=== PATIENT | male | born 1970 ===

== ENCOUNTER 2020-12-10 10:43 | Inpatient (IN) | payer SELFPAY ==
--- NOTE | 2020-12-10 12:15 | Event Note ---
ED Screening Note Date of service: 12/10/20 Time: 12:15 ED Screening Note: Chest pain or shortness of breath x2 days History of UT, has a stent in place Also states a couple of episodes of shortness of breath This initial assessment/diagnostic orders/clinical plan/treatment(s) is/are subject to change based on patients health status, clinical progression and re- assessment by fellow clinical providers in the ED. Further treatment and workup at subsequent clinical providers discretion. Patient/guardian urged not to elope from the ED as their condition may be serious if not clinically assessed and managed. Initial orders include: Labs EKG Chest x-ray lunchroom monitor
[2020-12-10] MEDS ORDERED: ASPIRIN 325 MG TAB PO ONE (12:34)
[2020-12-10 12:53] LABS: Basophils % (Auto) 0.2 % (0.0-1.8); Eosinophils % (Auto) 0.1 % (0.0-4.3); Hematocrit 44.6 % (35.5-45.6); Hemoglobin 15.4 gm/dl (11.8-15.2); Lymphocytes # (Auto) 0.7 K/mm3 (1.2-5.4); Mean Corpuscular HGB Conc 34 % (32-34); Mean Corpuscular Volume 94 fl (84-94); Monocytes # (Auto) 0.3 K/mm3 (0.0-0.8); Monocytes % (Auto) 4.9 % (0.0-7.3); Platelet Count 198 K/mm3 (140-440); Red Blood Count 4.75 M/mm3 (3.65-5.03); Red Cell Distribution Width 12.4 % (13.2-15.2)
--- NOTE | 2020-12-10 13:05 | XRay Report ---
CHEST 2 VIEWS INDICATION / CLINICAL INFORMATION: chest pain. COMPARISON: None available. FINDINGS: SUPPORT DEVICES: None. HEART / MEDIASTINUM: No significant abnormality. LUNGS / PLEURA: No significant pulmonary or pleural abnormality. No pneumothorax. ADDITIONAL FINDINGS: No significant additional findings. IMPRESSION: 1. No acute findings. Signer Name: Marley Souza MD Signed: 12/10/2020 1:01 PM Workstation Name: [id number]
[2020-12-10 13:12] LABS: Alanine Aminotransferase 28 units/L (7-56); Albumin 4.4 g/dL (3.9-5); BUN/Creatinine Ratio 18; Blood Urea Nitrogen 14 mg/dL (9-20); Calcium 9.3 mg/dL (8.4-10.2); Hemolysis Index 9
[2020-12-10 13:27] LABS: INR 0.84 (0.87-1.13)
[2020-12-10 13:28] LABS: Partial Thromboplastin Time 28.2 Sec. (24.2-36.6)
--- NOTE | 2020-12-10 13:58 | Emergency Department Report ---
ED Chest Pain HPI - General Chief Complaint: Chest Pain Stated Complaint: PAIN Time Seen by Provider: 12/10/20 11:47 Source: patient Mode of arrival: Ambulatory Limitations: No Limitations - History of Present Illness Initial Comments: Patient is a 50-year-old male with a past medical history of coronary artery disease hypertension who is presenting with chest discomfort. 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 Denies nausea. States he is is diaphoretic but he is also out working so he does not know if this is associated with chest discomfort. Patient had a stent placed in 2019. Denies cough cold congestion fevers or chills. - Related Data Allergies Allergy/AdvReac Type Severity Reaction Status Date / Time No Known Allergies Allergy Verified 12/10/20 11:07 Heart Score - HEART Score History: Highly suspicious EKG: Non-specific Age: 45-65 Risk factors: > 3 risk factors or hx of atherosclerotic disease Troponin: < normal limit HEART Score: 6 - EKG Read Time Time EKG Completed: 12:16 EKG Read Time: 12:19 ED Review of Systems ROS: Stated complaint: PAIN Other details as noted in HPI Comment: All other systems reviewed and negative ED Past Medical Hx - Past Medical History Previous Medical History?: Yes - Surgical History Past Surgical History?: Yes ED Physical Exam - General Limitations: No Limitations General appearance: alert, in no apparent distress - Head Head exam: Present: atraumatic, normocephalic - Eye Eye exam: Present: normal appearance, PERRL, EOMI - ENT ENT exam: Present: mucous membranes moist - Neck Neck exam: Present: normal inspection - Respiratory Respiratory exam: Present: normal lung sounds bilaterally. Absent: respiratory distress, wheezes, rales, rhonchi - Cardiovascular Cardiovascular Exam: Present: regular rate, normal rhythm, normal heart sounds. Absent: systolic murmur, diastolic murmur, rubs, gallop - GI/Abdominal GI/Abdominal exam: Present: soft, normal bowel sounds. Absent: distended, tenderness, guarding, rebound, rigid - Rectal Rectal exam: Present: deferred - Extremities Exam Extremities exam: Present: normal inspection - Back Exam Back exam: Present: normal inspection - Neurological Exam Neurological exam: Present: alert, oriented X3 - Psychiatric Psychiatric exam: Present: normal affect, normal mood - Skin Skin exam: Present: warm, dry, intact, normal color. Absent: rash ED Course Vital Signs 12/10/20 11:07 Temperature 98.4 F Pulse Rate 68 Respiratory 16 Rate Blood Pressure 104/70 [Left] O2 Sat by Pulse 96 Oximetry EMIR score - Emir Score Age > 65: (0) No Aspirin use within the Past 7 Days: (1) Yes 3 or more CAD Risk Factors: (1) Yes 2 or more Angina events in past 24 hrs: (1) Yes Known CAD with more than 50% Stenosis: (0) No Elevated Cardiac Markers: (0) No ST Deviation Greater than 0.5mm: (0) No EMIR Score: 3 ED Medical Decision Making - Lab Data Result diagrams: 12/10/20 12:21 12/10/20 12:21 Lab Results 12/10/20 12/10/20 12/10/20 Range/Units 12:21 12:21 12:39 WBC 6.2 (4.5-11.0) K/mm3 RBC 4.75 (3.65-5.03) M/mm3 Hgb 15.4 H (11.8-15.2) gm/dl Hct 44.6 (35.5-45.6) % MCV 94 (84-94) fl MCH 32 (28-32) pg MCHC 34 (32-34) % RDW 12.4 L (13.2-15.2) % Plt Count 198 (140-440) K/mm3 Lymph % (Auto) 11.0 L (13.4-35.0) % [place] % (Auto) 4.9 (0.0-7.3) % Eos % (Auto) 0.1 (0.0-4.3) % Baso % (Auto) 0.2 (0.0-1.8) % Lymph # (Auto) 0.7 L (1.2-5.4) K/mm3 [place] # (Auto) 0.3 (0.0-0.8) K/mm3 Eos # (Auto) 0.0 (0.0-0.4) K/mm3 Baso # (Auto) 0.0 (0.0-0.1) K/mm3 Seg Neutrophils % 83.8 H (40.0-70.0) % Seg Neutrophils # 5.2 (1.8-7.7) K/mm3 PT 12.5 (12.2-14.9) Sec. INR 0.84 L (0.87-1.13) APTT 28.2 (24.2-36.6) Sec. Sodium 140 (137-145) mmol/L Potassium 4.2 (3.6-5.0) mmol/L Chloride 103.7 (98-107) mmol/L Carbon Dioxide 23 (22-30) mmol/L Anion Gap 18 mmol/L BUN 14 (9-20) mg/dL Creatinine 0.8 (0.8-1.3) mg/dL Estimated GFR > 60 ml/min BUN/Creatinine Ratio 18 % Glucose 116 H (75-100) mg/dL Calcium 9.3 (8.4-10.2) mg/dL Total Bilirubin 0.70 (0.1-1.2) mg/dL AST 25 (5-40) units/L ALT 28 (7-56) units/L Alkaline Phosphatase 82 (35-129) units/L Troponin T < 0.010 (0.00-0.029) ng/mL Total Protein 7.7 (6.3-8.2) g/dL Albumin 4.4 (3.9-5) g/dL Albumin/Globulin Ratio 1.3 % - EKG Data -: EKG Interpreted by Nd - EKG Data 12/10/20 13:55 EKG shows ectopic atrial rhythm with a rate of 61. [place] is normal intervals otherwise normal. Q waves in septal leads. No ST segment elevation or depressions. Time interpretation 1219 - Radiology Data [facility] [address] [place] [address] XRay Report Signed Patient: LETY SCHULER MR#: [id number] : 1970 Acct:[id number] Age/Sex: 50 / M ADM Date: 12/10/20 Loc: ED Attending Dr: Ordering Physician: ABDIFATAH SAM Date of Service: 12/10/20 Procedure(s): XR chest routine 2V Accession Number(s): [id number] cc: ABDIFATAH SAM Fluoro Time In Minutes: CHEST 2 VIEWS INDICATION / CLINICAL INFORMATION: chest pain. COMPARISON: None available. FINDINGS: SUPPORT DEVICES: None. HEART / MEDIASTINUM: No significant abnormality. LUNGS / PLEURA: No significant pulmonary or pleural abnormality. No pneumothorax. ADDITIONAL FINDINGS: No significant additional findings. IMPRESSION: 1. No acute findings. Signer Name: Marley Souza MD Signed: 12/10/2020 1:01 PM Workstation Name: [id number] - Medical Decision Making Patient a 50-year-old male who is presenting with 3 days of chest discomfort. Heart score of 6. Patient will be admitted to the hospital service with cardiology consult. Critical Care Time: Yes (30) Critical care attestation.: If time is entered above; I have spent that time in minutes in the direct care of this critically ill patient, excluding procedure time. ED Disposition Clinical Impression: Unstable angina Disposition: ADMITTED INPATIENT Is pt being admited?: Yes Does the pt Need Aspirin: No Condition: Serious Instructions: Angina, Ewto-sl-Midp Time of Disposition: 13:58
--- NOTE | 2020-12-10 16:44 | History and Physical Report ---
History of Present Illness Chief complaint: My chest was hurting History of present illness: 50 YO Male with HTN, CAD S/P Stent placement, Obesity, Medication Noncompliance presents ED for evaluation. Patient reports "my chest is hurting". Patient states that he has experienced chest pain episodes over the past 3 days with intermittent symptoms over the same timeframe. Patient states that pain is 6/10, intermittent, worsened with exertion, relieved with rest, localized to the left side of the chest, nonradiating, associated with shortness of breath, associated with diaphoresis. Patient transported to [facility] via private vehicle for further care and evaluation of the aforementioned symptoms. The patient was se en and evaluated in the emergency department. All lab imaging studies reviewed. Patient found to have clinical symptoms consistent with angina. Patient initiated on chest pain protocol and placed in observation status and admitted to telemetry. Cardiology team consulted in ED as per ED staff. Patient denies fever, chills, palpitation, productive cough, skin rash, recent contact, no exposure to COVID-19. No prior admission for review. No medication listed at time of admission for reconciliation. Past History Past Medical History: CAD, hypertension Past Surgical History: Other (Cardiac stent placement) Social history: single. denies: smoking, alcohol abuse, prescription drug abuse Family history: diabetes, hypertension Medications and Allergies Allergies Allergy/AdvReac Type Severity Reaction Status Date / Time No Known Allergies Allergy Verified 12/10/20 11:07 Review of Systems Constitutional: no weight loss, no weight gain, no fever, no sweats Ears, nose, mouth and throat: no ear pain, no ear discharge, no decreased hearing, no nose pain, no nasal congestion, no sinus pressure Cardiovascular: chest pain, decreased exercise tolerance, no orthopnea, no rapid/irregular heart beat, no syncope, no lightheadedness Respiratory: no cough, no cough with sputum, no hemoptysis, no shortness of breath, no dyspnea on exertion Gastrointestinal: no abdominal pain, no nausea, no diarrhea, no hematemesis Genitourinary Male: no hematuria, no flank pain, no discharge, no urinary frequency, no urinary hesitancy Rectal: no pain, no incontinence, no bleeding Musculoskeletal: no neck stiffness, no neck pain, no arm numbness/tingling Integumentary: no rash, no pruritis, no sores, no wounds, no jaundice Neurological: no head injury, no paralysis, no parathesias, no seizures, no syncope, no tremors Psychiatric: no anxiety, no change in sleep habits, no sleep disturbances, no hypersomnia, no change in appetite, no change in libido, no disorientation Endocrine: no cold intolerance, no polyphagia, no excessive thirst, no flushing Hematologic/Lymphatic: no easy bruising, no easy bleeding, no lymphedema Allergic/Immunologic: no allergic rhinitis, no wheezing, no persistent infections, no anaphylaxis Exam - Constitutional Vitals: Temp Pulse Resp BP Pulse Ox 98.4 F 68 16 104/70 96 12/10/20 11:07 12/10/20 11:07 12/10/20 11:07 12/10/20 11:07 12/10/20 11:07 General appearance: Present: mild distress, obese - EENT Eyes: Present: PERRL ENT: hearing intact, clear oral mucosa - Neck Neck: Present: supple, normal ROM - Respiratory Respiratory effort: normal Respiratory: bilateral: CTA - Cardiovascular Heart Sounds: Present: S1 & S2. Absent: rub, click - Extremities Extremities: pulses symmetrical, No edema Peripheral Pulses: within normal limits - Abdominal General gastrointestinal: Present: soft, non-tender, non-distended, normal bowel sounds Male genitourinary: Present: normal - Integumentary Integumentary: Present: clear, warm, dry - Musculoskeletal Musculoskeletal: gait normal, strength equal bilaterally - Psychiatric Psychiatric: appropriate mood/affect, intact judgment & insight - Neurologic Neurologic: CNII-XII intact, moves all extremities HEART Score - HEART Score EKG: Non-specific Age: 45-65 Risk factors: > 3 risk factors or hx of atherosclerotic disease Troponin: Troponin T < 0.010 ng/mL (0.00-0.029) 12/10/20 15:11 Troponin: < normal limit Results - Labs CBC & Chem 7: 12/10/20 12:21 12/10/20 12:21 Labs: Abnormal lab results 12/10/20 12/10/20 12/10/20 Range/Units 12:21 12:21 12:39 Hgb 15.4 H (11.8-15.2) gm/dl RDW 12.4 L (13.2-15.2) % Lymph % (Auto) 11.0 L (13.4-35.0) % Lymph # (Auto) 0.7 L (1.2-5.4) K/mm3 Seg Neutrophils % 83.8 H (40.0-70.0) % INR 0.84 L (0.87-1.13) Glucose 116 H (75-100) mg/dL Assessment and Plan - Patient Problems (1) Unstable angina Current Visit: Yes Status: Acute Plan to address problem: Chest pain protocol: Serial cardiac enzymes, EKG, telemetry monitoring, cardiology team consulted in ED for further care and evaluation. Morphine, supplemental oxygen, nitro, aspirin, supportive care. PPI therapy. CT scan chest to evaluate for pulmonary embolism (2) Coronary artery disease Current Visit: Yes Status: Acute Plan to address problem: Lipid panel, statin therapy, risk factor reduction, (3) Hypertension Current Visit: Yes Status: Acute Qualifiers: Hypertension type: primary hypertension Qualified Code(s): I10 - Essential (primary) hypertension Plan to address problem: Monitor blood pressure every shift, patient is normotensive at this time. (4) Obesity Current Visit: Yes Status: Acute Plan to address problem: Balanced diet, increase physical activity at discharge, (5) DVT prophylaxis Current Visit: Yes Status: Acute Plan to address problem: SCD to bilateral lower extremities while in bed, patient is ambulatory
--- NOTE | 2020-12-10 18:02 | Cat Scan Report ---
CTA CHEST WITH CONTRAST INDICATION / CLINICAL INFORMATION: Dyspnea. TECHNIQUE: Axial CT images were obtained through the chest after injection of 100 cc Omnipaque 350 IV contrast. 3 plane MIP and/or 3D reconstructions were produced. All CT scans at this location are per formed using CT dose reduction for ALARA by means of automated exposure control. COMPARISON: None available. FINDINGS: PULMONARY ARTERIES: Good opacification bilaterally without intraluminal filling defect suggest acute PTE. THORACIC AORTA: No significant abnormality. HEART: No significant abnormality. CORONARY ARTERY CALCIFICATION: Mild. Probable coronary artery stents. MEDIASTINUM / ELISABETH: No significant abnormality. PLEURA: No pleural effusion. No pneumothorax. LUNGS: Minimal bibasilar dependent subsegmental atelectasis. The lungs are otherwise clear. ADDITIONAL FINDINGS: None. UPPER ABDOMEN: No acute findings. SKELETAL STRUCTURES: No significant osseous abnormality. IMPRESSION: 1. No CT evidence for pulmonary embolism. 2. No acute findings. Signer Name: Froilan Centeno MD Signed: 12/10/2020 5:57 PM Workstation Name: [id number]
[2020-12-10] MEDS ORDERED: traMADol 50 MG TAB PO PRN (18:19)
[2020-12-10] MEDS ORDERED: HYDROmorphone 1 MG/1 ML INJ IV PRN (18:19)
[2020-12-10] MEDS ORDERED: ASPIRIN 81 MG TAB CHEW PO STA (18:19)
[2020-12-10] MEDS ORDERED: NITROGLYCERIN 0.4 MG TAB SUBL SL PRN (18:19)
[2020-12-10] MEDS ORDERED: ACETAMINOPHEN 325 MG TAB PO PRN (18:19)
[2020-12-10 19:56] LABS: Chol/HDL Ratio 2.53 %
--- NOTE | 2020-12-11 09:05 | Progress Note ---
Assessment and Plan Assessment and plan: Acute coronary syndrome. Chest pain. Coronary artery disease. Hypertension. 12/11/2020. Continue chest pain protocol. Initial cardiac enzymes were found to be negative x3. We will continue to follow cardiac isoenzymes. Serial EKG. CTA of chest negative for PE. Await cardiology recommendations. History Interval history: No new issues overnight. Hospitalist Physical - Constitutional Vitals: Temp Pulse Resp BP Pulse Ox 98.2 F 67 16 128/74 97 12/11/20 08:02 12/11/20 08:02 12/11/20 08:02 12/11/20 08:02 12/11/20 08:02 General appearance: Present: no acute distress, obese - EENT Eyes: Present: PERRL, EOM intact ENT: hearing intact, clear oral mucosa, dentition normal - Neck Neck: Present: supple, normal ROM - Respiratory Respiratory effort: normal Respiratory: bilateral: CTA - Cardiovascular Rhythm: regular Heart Sounds: Present: S1 & S2. Absent: gallop, rub - Extremities Extremities: no ischemia, No edema, Full ROM - Abdominal General gastrointestinal: soft, non-tender, non-distended, normal bowel sounds - Integumentary Integumentary: Present: clear, warm, dry - Neurologic Neurologic: CNII-XII intact, moves all extremities HEART Score - HEART Score EKG: Non-specific Age: 45-65 Risk factors: > 3 risk factors or hx of atherosclerotic disease Troponin: Troponin T < 0.010 ng/mL (0.00-0.029) 12/11/20 00:51 Troponin: < normal limit Results - Labs CBC & Chem 7: 12/10/20 12:21 12/10/20 12:21 Labs: Laboratory Last Values WBC 6.2 K/mm3 (4.5-11.0) 12/10/20 12:21 RBC 4.75 M/mm3 (3.65-5.03) 12/10/20 12:21 Hgb 15.4 gm/dl (11.8-15.2) H 12/10/20 12:21 Hct 44.6 % (35.5-45.6) 12/10/20 12:21 MCV 94 fl (84-94) 12/10/20 12:21 MCH 32 pg (28-32) 12/10/20 12:21 MCHC 34 % (32-34) 12/10/20 12:21 RDW 12.4 % (13.2-15.2) L 12/10/20 12:21 Plt Count 198 K/mm3 (140-440) 12/10/20 12:21 Lymph % (Auto) 11.0 % (13.4-35.0) L 12/10/20 12:21 [place] % (Auto) 4.9 % (0.0-7.3) 12/10/20 12:21 Eos % (Auto) 0.1 % (0.0-4.3) 12/10/20 12:21 Baso % (Auto) 0.2 % (0.0-1.8) 12/10/20 12:21 Lymph # (Auto) 0.7 K/mm3 (1.2-5.4) L 12/10/20 12:21 [place] # (Auto) 0.3 K/mm3 (0.0-0.8) 12/10/20 12:21 Eos # (Auto) 0.0 K/mm3 (0.0-0.4) 12/10/20 12:21 Baso # (Auto) 0.0 K/mm3 (0.0-0.1) 12/10/20 12:21 Seg Neutrophils % 83.8 % (40.0-70.0) H 12/10/20 12:21 Seg Neutrophils # 5.2 K/mm3 (1.8-7.7) 12/10/20 12:21 PT 12.5 Sec. (12.2-14.9) 12/10/20 12:39 INR 0.84 (0.87-1.13) L 12/10/20 12:39 APTT 28.2 Sec. (24.2-36.6) 12/10/20 12:39 D-Dimer 146.95 ng/mlDDU (0-234) 12/10/20 16:59 Sodium 140 mmol/L (137-145) 12/10/20 12:21 Potassium 4.2 mmol/L (3.6-5.0) 12/10/20 12:21 Chloride 103.7 mmol/L (98-107) 12/10/20 12:21 Carbon Dioxide 23 mmol/L (22-30) 12/10/20 12:21 Anion Gap 18 mmol/L 12/10/20 12:21 BUN 14 mg/dL (9-20) 12/10/20 12:21 Creatinine 0.8 mg/dL (0.8-1.3) 12/10/20 12:21 Estimated GFR > 60 ml/min 12/10/20 12:21 BUN/Creatinine Ratio 18 % 12/10/20 12:21 Glucose 116 mg/dL (75-100) H 12/10/20 12:21 Calcium 9.3 mg/dL (8.4-10.2) 12/10/20 12:21 Total Bilirubin 0.70 mg/dL (0.1-1.2) 12/10/20 12:21 AST 25 units/L (5-40) 12/10/20 12:21 ALT 28 units/L (7-56) 12/10/20 12:21 Alkaline Phosphatase 82 units/L (35-129) 12/10/20 12:21 Troponin T < 0.010 ng/mL (0.00-0.029) 12/11/20 00:51 Total Protein 7.7 g/dL (6.3-8.2) 12/10/20 12:21 Albumin 4.4 g/dL (3.9-5) 12/10/20 12:21 Albumin/Globulin Ratio 1.3 % 12/10/20 12:21 Triglycerides 56 mg/dL (2-149) 12/10/20 19:08 Cholesterol 114 mg/dL (50-199) 12/10/20 19:08 LDL Cholesterol Direct 61 mg/dL (50-130) 12/10/20 19:08 HDL Cholesterol 45 mg/dL (40-59) 12/10/20 19:08 Cholesterol/HDL Ratio 2.53 % 12/10/20 19:08 Martinez/IV: Voiding Method Toilet Active Medications - Current Medications Current Medications: Generic Name Dose Route Start Last Admin Trade Name Freq PRN Reason Stop Dose Admin Acetaminophen 650 mg 12/10/20 18:19 Acetaminophen 325 Mg Tab PO Q6H PRN Pain, Mild (1-3) Atorvastatin Calcium 40 mg 12/10/20 22:00 12/10/20 23:05 Atorvastatin 40 Mg Tab PO 40 mg QHS TERE Administration Hydromorphone HCl 0.25 mg 12/10/20 18:19 Hydromorphone 1 Mg/1 Ml Inj IV Q5MIN PRN Chest Pain Nitroglycerin 0.4 mg 12/10/20 18:19 Nitroglycerin 0.4 Mg Tab Subl SL Q5M PRN Chest Pain Pantoprazole Sodium 20 mg 12/11/20 07:30 Pantoprazole 20 Mg Tab PO QDAC TERE Sodium Chloride 10 ml 12/10/20 18:19 Sodium Chloride 0.9% 10 Ml Flush Syringe IV PRN PRN LINE FLUSH Tramadol HCl 50 mg 12/10/20 18:19 Tramadol 50 Mg Tab PO Q6H PRN Pain, Moderate (4-6)
--- NOTE | 2020-12-11 09:19 | Consultation ---
History of Present Illness Consult date: 12/11/20 Consult reason: chest pain History of present illness: 50 year old male presenting with shortness of breath, chest pain and lightheadedness. Patient reports history of cardiovascular disease with cardiac cath performed Dec 2018 at [facility] revealing coronary artery disease. Patient is however not sure if a stent was placed or not. He denies history of CABG. At home he is maintained on aspirin, metoprolol and lisinopril. He is currently asymptomatic. Troponin x 3 negative and ECG showing normal sinus rhythm. Past History Past Medical History: CAD, hypertension Past Surgical History: Other (Cardiac stent placement) Social history: single. denies: smoking, alcohol abuse, prescription drug abuse Family history: diabetes, hypertension Medications and Allergies Allergies Allergy/AdvReac Type Severity Reaction Status Date / Time No Known Allergies Allergy Verified 12/10/20 11:07 Home Medications Medication Instructions Recorded Confirmed Last Taken Type Aspirin [Adult Aspirin] 81 mg PO DAILY 12/11/20 12/11/20 1 Day Ago History ~12/10/20 Metoprolol [Lopressor TAB] 25 mg PO DAILY 12/11/20 12/11/20 1 Day Ago History ~12/10/20 lisinopriL [Zestril TAB] 5 mg PO DAILY 12/11/20 12/11/20 1 Day Ago History ~12/10/20 Active Meds: Active Medications Acetaminophen (Acetaminophen 325 Mg Tab) 650 mg PO Q6H PRN PRN Reason: Pain, Mild (1-3) Aspirin (Aspirin Ec 81 Mg Tab) 81 mg PO QDAY [facility] Atorvastatin Calcium (Atorvastatin 40 Mg Tab) 40 mg PO QHS [facility] Last Admin: 12/10/20 23:05 Dose: 40 mg Documented by: Hydromorphone HCl (Hydromorphone 1 Mg/1 Ml Inj) 0.25 mg IV Q5MIN PRN PRN Reason: Chest Pain Lisinopril (Lisinopril 5 Mg Tab) 5 mg PO QDAY [facility] Metoprolol Tartrate (Metoprolol Tartrate 25 Mg Tab) 25 mg PO BID [facility] Nitroglycerin (Nitroglycerin 0.4 Mg Tab Subl) 0.4 mg SL Q5M PRN PRN Reason: Chest Pain Pantoprazole Sodium (Pantoprazole 20 Mg Tab) 20 mg PO QDAC [facility] Sodium Chloride (Sodium Chloride 0.9% 10 Ml Flush Syringe) 10 ml IV PRN PRN PRN Reason: LINE FLUSH Tramadol HCl (Tramadol 50 Mg Tab) 50 mg PO Q6H PRN PRN Reason: Pain, Moderate (4-6) Physical Examination Vital Signs Temp Pulse Resp BP Pulse Ox 98.4 F 68 16 104/70 96 12/10/20 11:07 12/10/20 11:07 12/10/20 11:07 12/10/20 11:07 12/10/20 11:07 General appearance: no acute distress HEENT: Positive: PERRL Neck: Positive: neck supple Cardiac: Positive: Reg Rate and Rhythm Lungs: Positive: Normal Exam Neuro: Positive: Grossly Intact Abdomen: Positive: Soft Extremities: Absent: edema Results 12/10/20 12:21 12/10/20 12:21 Cardiac Enzymes 12/10/20 Range/Units 12:21 AST 25 (5-40) units/L Coagulation 12/10/20 Range/Units 12:39 PT 12.5 (12.2-14.9) Sec. INR 0.84 L (0.87-1.13) APTT 28.2 (24.2-36.6) Sec. Lipids 12/10/20 Range/Units 19:08 Triglycerides 56 (2-149) mg/dL Cholesterol 114 (50-199) mg/dL HDL Cholesterol 45 (40-59) mg/dL Cholesterol/HDL Ratio 2.53 % CBC 12/10/20 Range/Units 12:21 WBC 6.2 (4.5-11.0) K/mm3 RBC 4.75 (3.65-5.03) M/mm3 Hgb 15.4 H (11.8-15.2) gm/dl Hct 44.6 (35.5-45.6) % Plt Count 198 (140-440) K/mm3 Lymph # (Auto) 0.7 L (1.2-5.4) K/mm3 [place] # (Auto) 0.3 (0.0-0.8) K/mm3 Eos # (Auto) 0.0 (0.0-0.4) K/mm3 Baso # (Auto) 0.0 (0.0-0.1) K/mm3 Comprehensive Metabolic Panel 12/10/20 Range/Units 12:21 Sodium 140 (137-145) mmol/L Potassium 4.2 (3.6-5.0) mmol/L Chloride 103.7 (98-107) mmol/L Carbon Dioxide 23 (22-30) mmol/L BUN 14 (9-20) mg/dL Creatinine 0.8 (0.8-1.3) mg/dL Glucose 116 H (75-100) mg/dL Calcium 9.3 (8.4-10.2) mg/dL AST 25 (5-40) units/L ALT 28 (7-56) units/L Alkaline Phosphatase 82 (35-129) units/L Total Protein 7.7 (6.3-8.2) g/dL Albumin 4.4 (3.9-5) g/dL - EKG Interpretation EKG: sinus rhythm EKG interpretations - Telemetry EKG Rhythm: Sinus Rhythm Assessment and Plan Chest Pain Troponin negative x 3 ECG no ischemic changes CT chest negative for PE Coronary artery disease ? obstructive vs non-obstructive Recommendations: Attempt at obtaining medical records from [facility] for echo and stress MPI on sunday
[2020-12-11] MEDS: METOPROLOL TARTRATE 25 MG TAB PO SCH ×3 (10:38→21:13)
[2020-12-11] MEDS: LISINOPRIL 5 MG TAB PO SCH ×2 (10:38→10:40)
[2020-12-11] MEDS: ASPIRIN EC 81 MG TAB PO SCH ×2 (10:38→10:40)
[2020-12-11] MEDS: PANTOPRAZOLE 20 MG TAB PO SCH (10:38)
[2020-12-12 04:13] LABS: Basophils % (Auto) 0.2 % (0.0-1.8); Eosinophils # (Auto) 0.2 K/mm3 (0.0-0.4); Eosinophils % (Auto) 2.1 % (0.0-4.3); Hemoglobin 15.6 gm/dl (11.8-15.2); Lymphocytes % (Auto) 24.9 % (13.4-35.0); Mean Corpuscular HGB Conc 35 % (32-34); Mean Corpuscular Volume 95 fl (84-94); Monocytes # (Auto) 0.6 K/mm3 (0.0-0.8); Monocytes % (Auto) 7.8 % (0.0-7.3); Platelet Count 190 K/mm3 (140-440); Red Blood Count 4.75 M/mm3 (3.65-5.03); Red Cell Distribution Width 12.2 % (13.2-15.2)
[2020-12-12 04:28] LABS: BUN/Creatinine Ratio 18; Blood Urea Nitrogen 14 mg/dL (9-20); Calcium 9.2 mg/dL (8.4-10.2); Hemolysis Index 12
--- NOTE | 2020-12-12 08:47 | Progress Note ---
Assessment and Plan Assessment and plan: Acute coronary syndrome. Chest pain. Coronary artery disease. Hypertension. 12/11/2020. Continue chest pain protocol. Initial cardiac enzymes were found to be negative x3. We will continue to follow cardiac isoenzymes. Serial EKG. CTA of chest negative for PE. Await cardiology recommendations. 12/12/2020. Troponin negative x3. EKG showed no ischemic changes. CT chest negative for PE. We will attempt to obtain medical records from [place]. Follow- up echocardiogram and stress test in a.m. per cardiology recommendations. History Interval history: No new issues overnight. Hospitalist Physical - Constitutional Vitals: Temp Pulse Resp BP Pulse Ox 97.7 F 57 L 18 97/62 97 12/12/20 03:55 12/12/20 03:55 12/12/20 03:55 12/12/20 03:55 12/12/20 03:55 General appearance: Present: no acute distress - EENT Eyes: Present: PERRL, EOM intact ENT: hearing intact, clear oral mucosa, dentition normal - Neck Neck: Present: supple, normal ROM - Respiratory Respiratory effort: normal Respiratory: bilateral: CTA - Cardiovascular Rhythm: regular Heart Sounds: Present: S1 & S2. Absent: gallop, rub - Extremities Extremities: no ischemia, No edema, Full ROM - Abdominal General gastrointestinal: soft, non-tender, non-distended, normal bowel sounds - Integumentary Integumentary: Present: clear, warm, dry - Neurologic Neurologic: CNII-XII intact, moves all extremities HEART Score - HEART Score EKG: Non-specific Age: 45-65 Risk factors: > 3 risk factors or hx of atherosclerotic disease Troponin: Troponin T < 0.010 ng/mL (0.00-0.029) 12/11/20 00:51 Troponin: < normal limit Results - Labs CBC & Chem 7: 12/12/20 03:46 12/12/20 03:46 Labs: Laboratory Last Values WBC 7.9 K/mm3 (4.5-11.0) 12/12/20 03:46 RBC 4.75 M/mm3 (3.65-5.03) 12/12/20 03:46 Hgb 15.6 gm/dl (11.8-15.2) H 12/12/20 03:46 Hct 45.0 % (35.5-45.6) 12/12/20 03:46 MCV 95 fl (84-94) H 12/12/20 03:46 MCH 33 pg (28-32) H 12/12/20 03:46 MCHC 35 % (32-34) H 12/12/20 03:46 RDW 12.2 % (13.2-15.2) L 12/12/20 03:46 Plt Count 190 K/mm3 (140-440) 12/12/20 03:46 Lymph % (Auto) 24.9 % (13.4-35.0) 12/12/20 03:46 [place] % (Auto) 7.8 % (0.0-7.3) H 12/12/20 03:46 Eos % (Auto) 2.1 % (0.0-4.3) 12/12/20 03:46 Baso % (Auto) 0.2 % (0.0-1.8) 12/12/20 03:46 Lymph # (Auto) 2.0 K/mm3 (1.2-5.4) 12/12/20 03:46 [place] # (Auto) 0.6 K/mm3 (0.0-0.8) 12/12/20 03:46 Eos # (Auto) 0.2 K/mm3 (0.0-0.4) 12/12/20 03:46 Baso # (Auto) 0.0 K/mm3 (0.0-0.1) 12/12/20 03:46 Seg Neutrophils % 65.0 % (40.0-70.0) 12/12/20 03:46 Seg Neutrophils # 5.1 K/mm3 (1.8-7.7) 12/12/20 03:46 PT 12.5 Sec. (12.2-14.9) 12/10/20 12:39 INR 0.84 (0.87-1.13) L 12/10/20 12:39 APTT 28.2 Sec. (24.2-36.6) 12/10/20 12:39 D-Dimer 146.95 ng/mlDDU (0-234) 12/10/20 16:59 Sodium 139 mmol/L (137-145) 12/12/20 03:46 Potassium 3.8 mmol/L (3.6-5.0) 12/12/20 03:46 Chloride 102.5 mmol/L (98-107) 12/12/20 03:46 Carbon Dioxide 25 mmol/L (22-30) 12/12/20 03:46 Anion Gap 15 mmol/L 12/12/20 03:46 BUN 14 mg/dL (9-20) 12/12/20 03:46 Creatinine 0.8 mg/dL (0.8-1.3) 12/12/20 03:46 Estimated GFR > 60 ml/min 12/12/20 03:46 BUN/Creatinine Ratio 18 % 12/12/20 03:46 Glucose 103 mg/dL (75-100) H 12/12/20 03:46 Calcium 9.2 mg/dL (8.4-10.2) 12/12/20 03:46 Total Bilirubin 0.70 mg/dL (0.1-1.2) 12/10/20 12:21 AST 25 units/L (5-40) 12/10/20 12:21 ALT 28 units/L (7-56) 12/10/20 12:21 Alkaline Phosphatase 82 units/L (35-129) 12/10/20 12:21 Troponin T < 0.010 ng/mL (0.00-0.029) 12/11/20 00:51 Total Protein 7.7 g/dL (6.3-8.2) 12/10/20 12:21 Albumin 4.4 g/dL (3.9-5) 12/10/20 12:21 Albumin/Globulin Ratio 1.3 % 12/10/20 12:21 Triglycerides 56 mg/dL (2-149) 12/10/20 19:08 Cholesterol 114 mg/dL (50-199) 12/10/20 19:08 LDL Cholesterol Direct 61 mg/dL (50-130) 12/10/20 19:08 HDL Cholesterol 45 mg/dL (40-59) 12/10/20 19:08 Cholesterol/HDL Ratio 2.53 % 12/10/20 19:08 Martinez/IV: Voiding Method Toilet Active Medications - Current Medications Current Medications: Generic Name Dose Route Start Last Admin Trade Name Freq PRN Reason Stop Dose Admin Acetaminophen 650 mg 12/10/20 18:19 Acetaminophen 325 Mg Tab PO Q6H PRN Pain, Mild (1-3) Aspirin 81 mg 12/11/20 10:00 12/11/20 10:40 Aspirin Ec 81 Mg Tab PO Not Given QDAY TERE Atorvastatin Calcium 40 mg 12/10/20 22:00 12/11/20 21:12 Atorvastatin 40 Mg Tab PO 40 mg QHS TERE Administration Hydromorphone HCl 0.25 mg 12/10/20 18:19 Hydromorphone 1 Mg/1 Ml Inj IV Q5MIN PRN Chest Pain Lisinopril 5 mg 12/11/20 10:00 12/11/20 10:40 Lisinopril 5 Mg Tab PO Not Given QDAY TERE Metoprolol Tartrate 25 mg 12/11/20 10:00 12/11/20 21:13 Metoprolol Tartrate 25 Mg Tab PO Not Given BID TERE Nitroglycerin 0.4 mg 12/10/20 18:19 Nitroglycerin 0.4 Mg Tab Subl SL Q5M PRN Chest Pain Pantoprazole Sodium 20 mg 12/11/20 07:30 12/11/20 10:38 Pantoprazole 20 Mg Tab PO 20 mg QDAC TERE Administration Sodium Chloride 10 ml 12/10/20 18:19 Sodium Chloride 0.9% 10 Ml Flush Syringe IV PRN PRN LINE FLUSH Tramadol HCl 50 mg 12/10/20 18:19 Tramadol 50 Mg Tab PO Q6H PRN Pain, Moderate (4-6) Nutrition/Malnutrition Assess - Dietary Evaluation Nutrition/Malnutrition Findings: Nutrition Notes Start: 12/11/20 13:27 Freq: Status: Active Protocol: Document 12/11/20 13:27 RONAL (Rec: 12/11/20 13:28 RONAL [id number]) Nutrition Notes Need for Assessment generated from: retirement actuary Initial or Follow up Brief Note Subjective/Other Information Pt screened for skin risk, however, Luis Carlos score is 21. Will assess upon further consult or LOS.
[2020-12-12] MEDS: METOPROLOL TARTRATE 25 MG TAB PO SCH ×2 (10:26→21:15)
[2020-12-12] MEDS: ASPIRIN EC 81 MG TAB PO SCH (10:26)
[2020-12-12] MEDS: PANTOPRAZOLE 20 MG TAB PO SCH (10:26)
[2020-12-12] MEDS: LISINOPRIL 5 MG TAB PO SCH (10:26)
--- NOTE | 2020-12-12 14:53 | Progress Note ---
Assessment and Plan Chest Pain Troponin negative x 3 ECG no ischemic changes CT chest negative for PE Echo showing normal LVEF Coronary artery disease ? obstructive vs non-obstructive Recommendations: Attempt at obtaining medical records from [place] Stress MPI on sunday Subjective Date of service: 12/12/20 Principal diagnosis: Chest Pain Interval history: No events overnight NSR on tele Objective Vital Signs Temp Pulse Resp BP BP Pulse Ox 12/12/20 12:00 91 H 98 12/12/20 09:50 62 112/70 12/12/20 03:55 97.7 F 57 L 18 97/62 97 12/11/20 23:25 98.0 F 56 L 18 118/65 98 12/11/20 22:00 98 12/11/20 21:13 56 L 99/61 12/11/20 19:17 98.2 F 56 L 18 99/61 97 12/11/20 15:27 97.9 F 56 L 18 108/63 95 - Physical Examination HEENT: Positive: PERRL Neck: Positive: neck supple Cardiac: Positive: Reg Rate and Rhythm Lungs: Positive: Normal Exam Neuro: Positive: Grossly Intact Abdomen: Positive: Soft Extremities: Absent: edema - Labs and Meds CBC 12/12/20 Range/Units 03:46 WBC 7.9 (4.5-11.0) K/mm3 RBC 4.75 (3.65-5.03) M/mm3 Hgb 15.6 H (11.8-15.2) gm/dl Hct 45.0 (35.5-45.6) % Plt Count 190 (140-440) K/mm3 Lymph # (Auto) 2.0 (1.2-5.4) K/mm3 [place] # (Auto) 0.6 (0.0-0.8) K/mm3 Eos # (Auto) 0.2 (0.0-0.4) K/mm3 Baso # (Auto) 0.0 (0.0-0.1) K/mm3 Comprehensive Metabolic Panel 12/12/20 Range/Units 03:46 Sodium 139 (137-145) mmol/L Potassium 3.8 (3.6-5.0) mmol/L Chloride 102.5 (98-107) mmol/L Carbon Dioxide 25 (22-30) mmol/L BUN 14 (9-20) mg/dL Creatinine 0.8 (0.8-1.3) mg/dL Glucose 103 H (75-100) mg/dL Calcium 9.2 (8.4-10.2) mg/dL
[2020-12-13] MEDS ORDERED: REGADENOSON 0.4 MG/5 ML INJ IV ONE (07:11)
[2020-12-13 08:22] LABS: Basophils % (Auto) 0.2 % (0.0-1.8); Eosinophils # (Auto) 0.1 K/mm3 (0.0-0.4); Eosinophils % (Auto) 2.2 % (0.0-4.3); Hematocrit 44.2 % (35.5-45.6); Hemoglobin 15.6 gm/dl (11.8-15.2); Lymphocytes # (Auto) 1.6 K/mm3 (1.2-5.4); Mean Corpuscular HGB Conc 35 % (32-34); Mean Corpuscular Volume 94 fl (84-94); Monocytes # (Auto) 0.6 K/mm3 (0.0-0.8); Monocytes % (Auto) 8.8 % (0.0-7.3); Platelet Count 173 K/mm3 (140-440); Red Blood Count 4.69 M/mm3 (3.65-5.03); Red Cell Distribution Width 12.3 % (13.2-15.2)
[2020-12-13 08:38] LABS: BUN/Creatinine Ratio 13; Blood Urea Nitrogen 13 mg/dL (9-20); Calcium 9.3 mg/dL (8.4-10.2); Hemolysis Index 2
--- NOTE | 2020-12-13 08:44 | Progress Note ---
Assessment and Plan Assessment and plan: Acute coronary syndrome. Chest pain. Coronary artery disease. Hypertension. 12/11/2020. Continue chest pain protocol. Initial cardiac enzymes were found to be negative x3. We will continue to follow cardiac isoenzymes. Serial EKG. CTA of chest negative for PE. Await cardiology recommendations. 12/12/2020. Troponin negative x3. EKG showed no ischemic changes. CT chest negative for PE. We will attempt to obtain medical records from [place]. Follow- up echocardiogram and stress test in a.m. per cardiology recommendations. 12/13/2020. Echocardiogram reveals left ventricular systolic function normal with a EF of 55 to 60%. Patient has normal left ventricular wall thickness and wall motion. Mild diastolic dysfunction. Patient seen in nuclear stress which will be completed this morning. Patient denies any chest pain currently. Await cardiology recommendations. History Interval history: No new issues overnight. Hospitalist Physical - Constitutional Vitals: Temp Pulse Resp BP Pulse Ox 97.6 F 67 18 105/65 97 12/13/20 04:24 12/13/20 04:24 12/13/20 04:24 12/13/20 04:24 12/13/20 04:24 General appearance: Present: no acute distress - EENT Eyes: Present: PERRL, EOM intact ENT: hearing intact, clear oral mucosa, dentition normal - Neck Neck: Present: supple, normal ROM - Respiratory Respiratory effort: normal Respiratory: bilateral: CTA - Cardiovascular Rhythm: regular Heart Sounds: Present: S1 & S2. Absent: gallop, rub - Extremities Extremities: no ischemia, No edema, Full ROM - Abdominal General gastrointestinal: soft, non-tender, non-distended, normal bowel sounds - Integumentary Integumentary: Present: clear, warm, dry - Neurologic Neurologic: CNII-XII intact, moves all extremities HEART Score - HEART Score EKG: Non-specific Age: 45-65 Risk factors: > 3 risk factors or hx of atherosclerotic disease Troponin: Troponin T < 0.010 ng/mL (0.00-0.029) 12/11/20 00:51 Troponin: < normal limit Results - Labs CBC & Chem 7: 12/13/20 07:04 12/12/20 03:46 Labs: Laboratory Last Values WBC 6.3 K/mm3 (4.5-11.0) 12/13/20 07:04 RBC 4.69 M/mm3 (3.65-5.03) 12/13/20 07:04 Hgb 15.6 gm/dl (11.8-15.2) H 12/13/20 07:04 Hct 44.2 % (35.5-45.6) 12/13/20 07:04 MCV 94 fl (84-94) 12/13/20 07:04 MCH 33 pg (28-32) H 12/13/20 07:04 MCHC 35 % (32-34) H 12/13/20 07:04 RDW 12.3 % (13.2-15.2) L 12/13/20 07:04 Plt Count 173 K/mm3 (140-440) 12/13/20 07:04 Lymph % (Auto) 25.0 % (13.4-35.0) 12/13/20 07:04 [place] % (Auto) 8.8 % (0.0-7.3) H 12/13/20 07:04 Eos % (Auto) 2.2 % (0.0-4.3) 12/13/20 07:04 Baso % (Auto) 0.2 % (0.0-1.8) 12/13/20 07:04 Lymph # (Auto) 1.6 K/mm3 (1.2-5.4) 12/13/20 07:04 [place] # (Auto) 0.6 K/mm3 (0.0-0.8) 12/13/20 07:04 Eos # (Auto) 0.1 K/mm3 (0.0-0.4) 12/13/20 07:04 Baso # (Auto) 0.0 K/mm3 (0.0-0.1) 12/13/20 07:04 Seg Neutrophils % 63.8 % (40.0-70.0) 12/13/20 07:04 Seg Neutrophils # 4.0 K/mm3 (1.8-7.7) 12/13/20 07:04 PT 12.5 Sec. (12.2-14.9) 12/10/20 12:39 INR 0.84 (0.87-1.13) L 12/10/20 12:39 APTT 28.2 Sec. (24.2-36.6) 12/10/20 12:39 D-Dimer 146.95 ng/mlDDU (0-234) 12/10/20 16:59 Sodium 139 mmol/L (137-145) 12/12/20 03:46 Potassium 3.8 mmol/L (3.6-5.0) 12/12/20 03:46 Chloride 102.5 mmol/L (98-107) 12/12/20 03:46 Carbon Dioxide 25 mmol/L (22-30) 12/12/20 03:46 Anion Gap 15 mmol/L 12/12/20 03:46 BUN 14 mg/dL (9-20) 12/12/20 03:46 Creatinine 0.8 mg/dL (0.8-1.3) 12/12/20 03:46 Estimated GFR > 60 ml/min 12/13/20 07:04 BUN/Creatinine Ratio 13 % 12/13/20 07:04 Glucose 103 mg/dL (75-100) H 12/12/20 03:46 Calcium 9.2 mg/dL (8.4-10.2) 12/12/20 03:46 Total Bilirubin 0.70 mg/dL (0.1-1.2) 12/10/20 12:21 AST 25 units/L (5-40) 12/10/20 12:21 ALT 28 units/L (7-56) 12/10/20 12:21 Alkaline Phosphatase 82 units/L (35-129) 12/10/20 12:21 Troponin T < 0.010 ng/mL (0.00-0.029) 12/11/20 00:51 Total Protein 7.7 g/dL (6.3-8.2) 12/10/20 12:21 Albumin 4.4 g/dL (3.9-5) 12/10/20 12:21 Albumin/Globulin Ratio 1.3 % 12/10/20 12:21 Triglycerides 56 mg/dL (2-149) 12/10/20 19:08 Cholesterol 114 mg/dL (50-199) 12/10/20 19:08 LDL Cholesterol Direct 61 mg/dL (50-130) 12/10/20 19:08 HDL Cholesterol 45 mg/dL (40-59) 12/10/20 19:08 Cholesterol/HDL Ratio 2.53 % 12/10/20 19:08 Martinez/IV: Voiding Method Urinal Active Medications - Current Medications Current Medications: Generic Name Dose Route Start Last Admin Trade Name Freq PRN Reason Stop Dose Admin Acetaminophen 650 mg 12/10/20 18:19 Acetaminophen 325 Mg Tab PO Q6H PRN Pain, Mild (1-3) Aspirin 81 mg 12/11/20 10:00 12/12/20 10:26 Aspirin Ec 81 Mg Tab PO Not Given QDAY TERE Atorvastatin Calcium 40 mg 12/10/20 22:00 12/12/20 21:14 Atorvastatin 40 Mg Tab PO 40 mg QHS TERE Administration Hydromorphone HCl 0.25 mg 12/10/20 18:19 Hydromorphone 1 Mg/1 Ml Inj IV Q5MIN PRN Chest Pain Lisinopril 5 mg 12/11/20 10:00 12/12/20 10:26 Lisinopril 5 Mg Tab PO Not Given QDAY TERE Metoprolol Tartrate 25 mg 12/11/20 10:00 12/12/20 21:15 Metoprolol Tartrate 25 Mg Tab PO 25 mg BID TERE Administration Nitroglycerin 0.4 mg 12/10/20 18:19 Nitroglycerin 0.4 Mg Tab Subl SL Q5M PRN Chest Pain Pantoprazole Sodium 20 mg 12/11/20 07:30 12/12/20 10:26 Pantoprazole 20 Mg Tab PO Not Given QDAC TERE Sodium Chloride 10 ml 12/10/20 18:19 12/12/20 21:14 Sodium Chloride 0.9% 10 Ml Flush Syringe IV 10 ml PRN PRN Administration LINE FLUSH Tramadol HCl 50 mg 12/10/20 18:19 Tramadol 50 Mg Tab PO Q6H PRN Pain, Moderate (4-6) Nutrition/Malnutrition Assess - Dietary Evaluation Nutrition/Malnutrition Findings: Nutrition Notes Start: 12/11/20 13:27 Freq: Status: Active Protocol: Document 12/11/20 13:27 RONAL (Rec: 12/11/20 13:28 RONAL [id number]) Nutrition Notes Need for Assessment generated from: chief optometry service Initial or Follow up Brief Note Subjective/Other Information Pt screened for skin risk, however, Luis Carlos score is 21. Will assess upon further consult or LOS.
--- NOTE | 2020-12-13 08:50 | Discharge Summary ---
Providers - Providers Date of Admission: 12/12/20 15:33 Date of discharge: 12/13/20 Attending physician: DAMASO CHAVEZ 12/10/20 Consult to Cardiac Rehabilitation [CONS] Routine Reason For Exam: Phase I 12/10/20 19:45 Consult to Cardiology [CONS] Routine Consulting Provider: SARA JAMES Reason For Exam: angina Primary care physician: CHARGE ACCOUNT AUTHORIZER Hospitalization Reason for admission: cp Condition: Serious Hospital course: 50 year old male presenting with shortness of breath, chest pain and lightheadedness. Patient reports history of cardiovascular disease with cardiac cath performed Dec 2018 at [facility] revealing coronary artery disease. Patient is however not sure if a stent was placed or not. He denies history of CABG. At home he is maintained on aspirin, metoprolol and lisinopril. He is currently asymptomatic. Troponin x 3 negative and ECG showing normal sinus rhythm. The patient was admitted with diagnosis of acute coronary syndrome, chest pain, coronary artery disease and hypertension. Hospital course: 12/11/2020. Continue chest pain protocol. Initial cardiac enzymes were found to be negative x3. We will continue to follow cardiac isoenzymes. Serial EKG. CTA of chest negative for PE. Await cardiology recommendations. 12/12/2020. Troponin negative x3. EKG showed no ischemic changes. CT chest negative for PE. We will attempt to obtain medical records from [place]. Follow- up echocardiogram and stress test in a.m. per cardiology recommendations. 12/13/2020. Echocardiogram reveals left ventricular systolic function normal with a EF of 55 to 60%. Patient has normal left ventricular wall thickness and wall motion. Mild diastolic dysfunction. Patient seen in nuclear stress which will be completed this morning. Patient denies any chest pain currently. Await cardiology recommendations. If stress test is negative, etiology of chest pain is likely secondary to GERD. Dedicated discharge time 35 minutes Disposition: 01 HOME / SELF CARE / HOMELESS Final Discharge Diagnosis (Prints w/discharge instructions): GERD, chest pain, coronary artery disease, hypertension Core Measure Documentation - Palliative Care Palliative Care/ Comfort Measures: Not Applicable - Core Measures Any of the following diagnoses?: none Exam - Constitutional Vitals: Temp Pulse Resp BP Pulse Ox 97.6 F 67 18 105/65 97 12/13/20 04:24 12/13/20 04:24 12/13/20 04:24 12/13/20 04:24 12/13/20 04:24 General appearance: Present: no acute distress, well-nourished - EENT Eyes: Present: PERRL ENT: hearing intact, clear oral mucosa - Neck Neck: Present: supple, normal ROM - Respiratory Respiratory effort: normal Respiratory: bilateral: CTA - Cardiovascular Heart Sounds: Present: S1 & S2. Absent: rub, click - Extremities Extremities: pulses symmetrical, No edema Peripheral Pulses: within normal limits - Abdominal General gastrointestinal: Present: soft, non-tender, non-distended, normal bowel sounds Male genitourinary: Present: normal - Integumentary Integumentary: Present: clear, warm, dry - Musculoskeletal Musculoskeletal: gait normal, strength equal bilaterally - Psychiatric Psychiatric: appropriate mood/affect, intact judgment & insight - Neurologic Neurologic: CNII-XII intact, moves all extremities Plan Activity: advance as tolerated Weight Bearing Status: Weight Bear as Tolerated Follow up with: PRIMARY CARE, [Primary Care Provider] - 7 Days Prescriptions: Aspirin [Adult Aspirin] 81 mg PO DAILY #30 AtorvaSTATin [Lipitor] 40 mg PO QHS #30 tablet Metoprolol [Lopressor TAB] 25 mg PO DAILY #30 Pantoprazole [Protonix TAB] 20 mg PO QDAC #30 tablet. lisinopriL [Zestril TAB] 5 mg PO DAILY #30
--- NOTE | 2020-12-13 10:17 | Event Note ---
Date: 12/13/20 Patient exercised for 9 minutes of a Roni protocol, completing stage III and achieving 10 METS. There was no chest pain, no ST changes of ischemia, and no significant dysrhythmias. The thallium myocardial perfusion images are pending for final test interpretation.
[2020-12-13] MEDS: METOPROLOL TARTRATE 25 MG TAB PO SCH (12:04)
[2020-12-13] MEDS: ASPIRIN EC 81 MG TAB PO SCH (12:04)
[2020-12-13] MEDS: PANTOPRAZOLE 20 MG TAB PO SCH (12:04)
[2020-12-13] MEDS: LISINOPRIL 5 MG TAB PO SCH (12:05)
--- NOTE | 2020-12-13 13:50 | Nuclear Medicine Report ---
APPROVED REPORT Exam: Nuclear Stress Test Indication: Chest pain Patient Location: [address] [place], [place] [address] Room #: 458 Ht: 5 ft 8 in Wt: 172 lbs BSA: 1.92 m2 HR: 61 bpmBP: 116/76 mmHgBMI: 26.14 Medical History Medical History: CAD s/p stent, HTN, Diabetes Stress Test Details Stress Test: Exercise stress testing was performed using a Roni protocol. HR Resting HR: 61 bpm Max HR Achieved: 123 bpm Max Heart Rate (APMHR): 171 bpm Target HR (85% APMHR): 145 bpm % of APMHR: 71 Recovery HR: 88 bpm BP Resting BP: 116/76 mmHg Max BP: 150/86 mmHg Recovery BP: 126/75 mmHg ECG Resting ECG: Sinus Rhythm Stress ECG: Sinus Tachycardia ST Change: None Arrhythmia: None Recovery ECG: Sinus Rhythm Recovery ST Change: None Recovery Arrhythmia: None Clinical Reason for Termination: Fatigue Stress Symptoms: None Exercise duration: 9 min sec Exercise capacity: 10.3 METs Stress ECG Conclusion Patient exercised for 9 minutes of a Roni protocol, completing stage III for 10 METS. No chest pain, no ST changes of ischemia and no dysrhythmias. Myocardial perfusion images are pending. NM EXAM: Myocardial Perfusion REST/STRESS Imaging Protocol: Rest Tc-99m/Stress Tc-99m 1 day Resting Data Rest SPECT myocardial perfusion imaging was performed in supine position 45 minutes following the intravenous injection of 10 mCi of Tc-99m Myoview. Time of rest injection: 0700 Pharmacologic Stress Pharmacologic stress test was performed by injecting Regadenoson 0.4 mg IV push followed by the intravenous injection of 28 mCi of Tc-99m Myoview. Time of stress injection: 09 Study Data TID = 1.05. Perfusion Wall Motion Mild hypokinesis of the mid anterior wall is noted. Left ventricular systolic function is mildly reduced, ejection fraction 42%. Nuclear Conclusion ECG Findings: negative for ischemia Clinical Findings: negative for ischemia Nuclear Findings: negative for ischemia Exercise Capacity: normal Left Ventricular Function: abnormal Risk Study: low Patient exercised for 9 minutes, completed 10 METS. Myocardial perfusion study shows a small fixed mid anterior defect, consistent with an old myocardial infarction. There is no reversible ischemia demonstrated. Left ventricular systolic function is mildly impaired, ejection fraction 42%. Normal study. No scintigraphic evidence for myocardial ischemia or scar. Conclusion Patient exercised for 9 minutes of a Roni protocol, completing stage III for 10 METS. No chest pain, no ST changes of ischemia and no dysrhythmias. Myocardial perfusion images are pending.
--- NOTE | 2020-12-13 13:52 | Event Note ---
Date: 12/13/20 Exercise stress imaging shows a small fixed mid anterior defect of old infarct, no reversible ischemia. Recommend conservative management with guideline directed medical therapy for coronary artery disease to include aspirin, beta- blockers, statin, afterload agent in addition to risk factor modification and outpatient cardiac follow-up. Okay for cardiac discharge.
[2020-12-13 16:40] VITALS: BP 110/65
--- NOTE | 2020-12-16 09:49 | Electrocardiograph Report ---
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
--- NOTE | 2020-12-16 09:56 | Electrocardiograph Report ---
[facility] Test Date: 2020-12-11 Test Time: 07:48:23 Pat Name: LETY SCHULER Department: Room: A458 1 Gender: M Clinical Pharmacy Manager: HEAVENLY : 1970 Requested By: ABDIFATAH SAM Order Number: [id number] Reading MD: Cyndi Nguyen Measurements Intervals [place] Rate: 66 P: 34 MI: 155 QRS: 74 QRSD: 85 T: 75 QT: 390 QTc: 409 Interpretive Statements Sinus rhythm Possible old anteroseptal infarct Compared to ECG 12/10/2020 12:16:11 Sinus rhythm has replaced ectopic atrial rhythm Electronically Signed On 12-16-2020 9:56:34 EDT by Cyndi Nguyen
--- NOTE | 2020-12-16 09:59 | Electrocardiograph Report ---
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
--- NOTE | 2020-12-16 10:01 | Electrocardiograph Report ---
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
== END 2020-12-13 16:00 | disposition home or self-care (01) | DRG 392 ==
LOC: ED 10:43 → 4A 18:19 → OBSVTOIN 12-12 15:33
PROVIDERS: ADMIT Internal Medicine; ATTEND Hospitalist
DX: K21.9 Gastro-esophageal reflux disease without esophagitis (principal); I25.119 Atherosclerotic heart disease of native coronary artery with unspecified angina pectoris; E66.9 Obesity, unspecified; Z68.26 Body mass index [BMI] 26.0-26.9, adult; Z20.822 Contact with and (suspected) exposure to COVID-19; I10 Essential (primary) hypertension; Z83.3 Family history of diabetes mellitus; Z82.49 Family history of ischemic heart disease and other diseases of the circulatory system
CPT/HCPCS: 36415; 71046; 71275; 78452; 80048; 80053; 80061; 84484; 85025; 85379; 85610; 85730; 93005; 93017; 93306; G0378; A9502; Q9967